=== PATIENT | male | born 1980 | race Caucasian/White ===

== ENCOUNTER 2019-07-17 16:02 | Emergency (ER) | payer BC ==
[2019-07-17] MEDS ORDERED: Dexamethasone 10 MG/ML SDV IM ONE (17:31)
--- NOTE | 2019-07-17 17:34 | EDM.PDOC ---
ED HPI GENERAL MEDICAL PROBLEM - General Chief Complaint: Back Pain or Injury Stated Complaint: BACK PAIN Time Seen by Provider: 07/17/19 17:21 Source of Information: Reports: Patient, RN Notes Reviewed History Limitations: Reports: No Limitations - History of Present Illness INITIAL COMMENTS - FREE TEXT/NARRATIVE: Patient is a 38-year-old male who presents to the ED for evaluation of lower back pain. Patient notes that this is mostly located on his left lower back with radiation to his left leg. The patient notes he had a dull ache starting this last Friday, it was not super bothersome however he did go to the chiropractor yesterday, and states that the pain did intensify after the chiropractor. 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 He notes that the pain is sharp and shooting in nature especially when he coughs, sneezes, or takes deep breaths in. He notes he has increased pain with any sort of movement or bending over. He notes that when the pain is that is worse, and he is walking, he feels weak at the knees, and feels like he is going to collapse. He states that the pain is 8 out of 10 when it is present, and 3 out of 10 when it is not overly bothersome. He did not try any ibuprofen or Tylenol at home. He denies any numbness or tingling into the extremity, he denies any loss of control of his urine or bowels. Patient denies any sort of trauma to the area, and states that he has not had any chronic back aches or issues prior to this. Left Back Pain Score (Numeric/FACES): 8 - Related Data Allergies Allergy/AdvReac Type Severity Reaction Status Date / Time No Known Allergies Allergy Verified 07/17/19 17:01 Home Meds: Home Meds predniSONE 20 mg PO ASDIRECTED #15 tab 07/17/19 [Rx] Past Medical History - Past Surgical History GI Surgical History: Reports: Other (See Below) Other GI Surgeries/Procedures: Surgery 12 years ago, foot n a half of Lg intestine removed. Social & Family History - Tobacco Use Smoking Status *Q: Never Smoker - Caffeine Use Caffeine Use: Reports: Coffee - Recreational Drug Use Recreational Drug Use: No ED ROS GENERAL - Review of Systems Review Of Systems: See Below Constitutional: Denies: Fever, Chills HEENT: Reports: No Symptoms Respiratory: Denies: Shortness of Breath Cardiovascular: Denies: Chest Pain Endocrine: Reports: No Symptoms GI/Abdominal: Denies: Abdominal Pain, Nausea, Vomiting : Denies: Incontinence Musculoskeletal: Reports: Back Pain (Left lower back pain), Leg Pain (left leg pain) Skin: Reports: No Symptoms Neurological: Denies: Numbness, Tingling, Difficulty Walking Psychiatric: Reports: No Symptoms Hematologic/Lymphatic: Reports: No Symptoms Immunologic: Reports: No Symptoms ED EXAM,LOWER BACK PAIN/INJURY - Physical Exam Exam: See Below Exam Limited By: No Limitations General Appearance: Alert, WD/WN, No Apparent Distress Throat/Mouth: Normal Inspection, Normal Lips, Normal Teeth, Normal Gums, Normal Oropharynx, Normal Voice, No Airway Compromise Head: Atraumatic, Normocephalic Neck: Normal Inspection Respiratory/Chest: No Respiratory Distress, Lungs Clear, Normal Breath Sounds, No Accessory Muscle Use, Chest Non-Tender Cardiovascular: Normal Peripheral Pulses, Regular Rate, Rhythm, No Murmur GI/Abdominal: Normal Bowel Sounds, Soft, Non-Tender, No Distention, No Mass Extremities: Normal Inspection, Normal Capillary Refill, Limited Range of Motion (d/t pain) Neurological: Alert, Normal Mood/Affect, Normal Dorsiflexion, Normal Plantar Flexion, Normal Gait, Oriented x 3, Straight Leg Raise (L), Straight Leg Raise ( R). No: Saddle Anesthesia Psychiatric: Normal Affect, Normal Mood Skin Exam: Warm, Dry, Intact, Normal Color, No Rash Course - Vital Signs Last Recorded V/S: Last Vital Signs Temp 97.8 F 07/17/19 16:51 Pulse 82 07/17/19 16:51 Resp 16 07/17/19 16:51 BP 136/96 H 07/17/19 16:51 Pulse Ox 94 L 07/17/19 16:51 - Orders/Labs/Meds Meds: Medications Discontinued Medications Generic Name Dose Route Start Last Admin Trade Name Gilmar PRN Reason Stop Dose Admin Dexamethasone 10 mg 07/17/19 17:31 07/17/19 17:54 Dexamethasone IM 07/17/19 17:32 10 mg ONETIME ONE Administration - Re-Assessments/Exams Free Text/Narrative Re-Assessment/Exam: 07/17/19 17:39 Patient presents to the ED for evaluation of lower back pain. I do believe he is suffering from sciatica in nature, will give 10 mg IM dexamethasone for initial relief in the ER, and have him do an outpatient prednisone burst for further pain relief. Did go over the disease course with him, patient agrees to comply to the treatment plan at this time. Departure - Departure Time of Disposition: 17:40 Disposition: Home, Self-Care 01 Condition: Fair Clinical Impression: Low back pain Qualifiers: Chronicity: acute Back pain laterality: left Sciatica presence: with sciatica Sciatica laterality: sciatica of left side Qualified Code(s): M54.42 - Lumbago with sciatica, left side - Discharge Information *PRESCRIPTION DRUG MONITORING PROGRAM REVIEWED*: No *COPY OF PRESCRIPTION DRUG MONITORING REPORT IN PATIENT PANKAJ: No Prescriptions: predniSONE 20 mg PO ASDIRECTED #15 tab Instructions: Sciatica, [id number] Referrals: Tasha Joshua MD [Primary Care Provider] - Forms: ED Department Discharge, ED Return to Work/School Form Additional Instructions: You have been evaluated in the ED for your lower back pain. Please use ice/heat as tolerated to the affected area. You may take Tylenol 500 mg or ibuprofen 600mg q6 hrs for pain relief. Please do so until you have a tolerable level of pain with activity. Do not exceed 4000mg Tylenol or 3200mg ibuprofen in a 24 hour time period. You were given a prescription for prednisone, please take as directed, this was electronically prescribed to the [facility]. Please return to ED if your symptoms should change or worsen.
== END 2019-07-17 18:00 | disposition home or self-care (01) ==
LOC: JD.ED 16:02
DX: M54.42 Lumbago with sciatica, left side (principal)
CPT/HCPCS: 96372; 99284; J1100; 99283

== ENCOUNTER 2022-11-14 21:39 | Emergency (ER) | payer BC, OTHER ==
[2022-11-14] MEDS ORDERED: Bacitracin Oint 15 GM Tube TOP ONE (22:03)
== END 2022-11-14 22:15 | disposition home or self-care (01) ==
LOC: JD.ED 21:39
DX: H92.02 Otalgia, left ear (principal); Z86.16 Personal history of COVID-19
CPT/HCPCS: 99282; A9270

== ENCOUNTER 2024-01-28 22:45 | Emergency (ER) | payer OTHER | END 2024-01-28 23:55 | disposition home or self-care (01) | LOC: JD.ED 22:45 | DX: S93.402A Sprain of unspecified ligament of left ankle, initial encounter (principal); S80.12XA Contusion of left lower leg, initial encounter; Z79.899 Other long term (current) drug therapy; Z86.16 Personal history of COVID-19; W21.07XA Struck by softball, initial encounter | CPT/HCPCS: 73590-26-LT; 73590-LT; 73610-26-LT; 73610-LT; 99282; 99283 ==